=== PATIENT | female | born 1945 | race Caucasian/White ===

== ENCOUNTER 2020-04-01 10:08 | Outpatient (CLI) | payer MEDICARE, SELFPAY ==
[2020-04-01 10:20] LABS: Basophils Absolute Auto 0.11 K/mm3 (0.00-0.10); Basophils Percent Auto 1.9 % (0.0-1.0); Eosinophils Absolute Auto 0.28 K/mm3 (0.02-0.50); Eosinophils Percent Auto 4.7 % (1.0-6.0); Hematocrit 39.7 % (35.0-42.0); Hemoglobin 13.3 g/dL (11.7-13.8); Immature Granulocyte Absolute 0.01 K/mm3 (0.00-0.00); Immature Granulocyte Percent A 0.2 % (0.0-0.0); Lymphocytes Absolute Auto 2.69 K/mm3 (1.10-4.50); Lymphocytes Percent Auto 45.3 % (18.0-42.0); Mean Corpuscular HGB Conc 33.5 g/dL (32.0-36.0); Mean Corpuscular Hemoglobin 29.8 pg (27.0-31.0); Mean Corpuscular Volume 88.8 fL (78.0-102.0); Mean Platelet Volume 10.3 fl (9.2-11.8); Monocytes Absolute Auto 0.53 K/mm3 (0.10-0.90); Monocytes Percent Auto 8.9 % (2.0-11.0); Neutrophils Absolute Auto 2.3 K/mm3 (1.7-7.2); Platelet Count Result 278 K/mm3 (150-420); Red Blood Count 4.47 M/mm3 (4.20-5.40); Red Cell Distribution Width 11.9 % (11.6-14.4); White Blood Count 5.9 K/mm3 (4.8-10.8)
[2020-04-01 10:33] LABS: Creatinine Urine 120.54 mg/dL (40-278); MALB Creatinine Ratio 10.4 mg/g (0-30); Microalbumin Urine Random 12.6 mg/L
[2020-04-01 10:35] LABS: Hemoglobin A1C 10.3 % (<5.7)
[2020-04-01 11:12] LABS: Alanine Aminotransferase 23 U/L (14-59); Albumin Level 4.2 g/dL (3.4-5.0); Alkaline Phosphatase 68 U/L (46-116); Anion Gap 13 mmol/L (8-16); Aspartate Amino Transferase 20 U/L (15-37); Bilirubin,Total 0.5 mg/dL (0.00-1.00); Blood Urea Nitrogen 19 mg/dL (7-18); Calcium 9.5 mg/dL (8.5-10.1); Carbon Dioxide 24 mmol/L (21-32); Chloride 100 mmol/L (98-108); Cholesterol 184 mg/dL (0-200); Estimated Glomerular Filt Rate 50; Glucose 210 mg/dL (70-99); HDL Direct 46 mg/dL (40-60); LDL Cholesterol Calculated 105 mg/dL (<130); Osmolality Calculated 292 mOsm/kg (285-295); Potassium 4.5 mmol/L (3.5-5.1); Sodium 137 mmol/L (136-145); Total Protein 7.6 g/dL (6.4-8.2); Triglycerides 164 mg/dL (0-150)
[2020-04-01 12:03] LABS: Thyroid Stimulating Hormone Reflex 2.78 u/IU/mL (0.36-3.74)
== END 2020-04-01 10:09 | disposition home or self-care (01) ==
PROVIDERS: PCP Family Medicine; Visit Provider Family Medicine
DX: E03.9 Hypothyroidism, unspecified (principal); E11.9 Type 2 diabetes mellitus without complications; I10 Essential (primary) hypertension
CPT/HCPCS: 36415; 80053; 80061; 82043; 83036; 84443; 85025

== ENCOUNTER 2021-03-15 09:23 | Outpatient (CLI) | payer MEDICARE, SELFPAY ==
[2021-03-15 10:45] LABS: Basophils Absolute Auto 0.13 K/mm3 (0.00-0.10); Basophils Percent Auto 2.2 % (0.0-1.0); Eosinophils Absolute Auto 0.35 K/mm3 (0.02-0.50); Eosinophils Percent Auto 5.8 % (1.0-6.0); Hematocrit 37.7 % (35.0-42.0); Hemoglobin 12.5 g/dL (11.7-13.8); Immature Granulocyte Absolute 0.01 K/mm3 (0.00-0.00); Immature Granulocyte Percent A 0.2 % (0.0-0.0); Lymphocytes Absolute Auto 2.32 K/mm3 (1.10-4.50); Lymphocytes Percent Auto 38.7 % (18.0-42.0); Mean Corpuscular HGB Conc 33.2 g/dL (32.0-36.0); Mean Corpuscular Hemoglobin 29.5 pg (27.0-31.0); Mean Corpuscular Volume 88.9 fL (78.0-102.0); Mean Platelet Volume 10.4 fl (9.2-11.8); Monocytes Absolute Auto 0.57 K/mm3 (0.10-0.90); Monocytes Percent Auto 9.5 % (2.0-11.0); Neutrophils Absolute Auto 2.6 K/mm3 (1.7-7.2); Neutrophils Percent Auto 43.6 % (50.0-70.0); Platelet Count Result 273 K/mm3 (150-420); Red Blood Count 4.24 M/mm3 (4.20-5.40); Red Cell Distribution Width 12.3 % (11.6-14.4)
[2021-03-15 11:08] LABS: Hemoglobin A1C 7.9 % (<5.7)
[2021-03-15 11:28] LABS: Alanine Aminotransferase 17 U/L (14-59); Alkaline Phosphatase 60 U/L (46-116); Anion Gap 11 mmol/L (8-16); Aspartate Amino Transferase 18 U/L (15-37); Bilirubin,Total 0.6 mg/dL (0.00-1.00); Blood Urea Nitrogen 20 mg/dL (7-18); Carbon Dioxide 26 mmol/L (21-32); Chloride 104 mmol/L (98-108); Cholesterol 160 mg/dL (0-200); Estimated Glomerular Filt Rate > 60; Glucose 139 mg/dL (70-99); HDL Direct 53 mg/dL (40-60); LDL Cholesterol Calculated 80 mg/dL (<130); Osmolality Calculated 296 mOsm/kg (285-295); Potassium 4.6 mmol/L (3.5-5.1); Sodium 141 mmol/L (136-145); Total Protein 6.9 g/dL (6.4-8.2); Triglycerides 137 mg/dL (0-150)
[2021-03-15 11:34] LABS: Thyroid Stimulating Hormone Reflex 2.43 u/IU/mL (0.36-3.74)
== END 2021-03-15 09:24 | disposition home or self-care (01) ==
LOC: CHSLAB 09:24
PROVIDERS: PCP Family Medicine; Visit Provider Family Medicine
DX: E03.9 Hypothyroidism, unspecified (principal); E11.9 Type 2 diabetes mellitus without complications
CPT/HCPCS: 36415; 80053; 80061; 83036; 84443; 85025

== ENCOUNTER 2025-03-17 15:02 | Outpatient (CLI) | payer MEDICARE, SELFPAY ==
--- NOTE | ~2025-03-17 | XR_ITS ---
EXAM: XR wrist RT w scaphoid, XR wrist LT w scaphoid DATE: 03/17/2025 15:23 HISTORY: M25.531 - Pain in right wrist . COMPARISON: None available. FINDINGS: Decreased mineralization. No fracture or dislocation. No lytic or blastic lesion. Scattere d degenerative changes typical of osteoarthritis, most pronounced at the first CMC joints and worse o n the left. Chondrocalcinosis. No erosion or periosteal change. Soft tissue swelling about the wrist joints and likely wrist joint effusions. IMPRESSION: Osteopenia. Polyarticular arthritis of the wrists, with chondrocalcinosis. Bilateral wris t joint effusions and soft tissue swelling Reviewed, dictated and finalized at location K. IMPRESSION: Osteopenia. Polyarticular arthritis of the wrists, with chondrocalc inosis. Bilateral wrist joint effusions and soft tissue swelling
== END 2025-03-17 15:03 | disposition home or self-care (01) ==
LOC: CHSIMG 15:05
PROVIDERS: PCP Family Medicine; Visit Provider Nurse Practitioner Family
DX: R29.898 Other symptoms and signs involving the musculoskeletal system (principal); M25.531 Pain in right wrist; M25.532 Pain in left wrist; M85.88 Other specified disorders of bone density and structure, other site; M19.032 Primary osteoarthritis, left wrist; M19.031 Primary osteoarthritis, right wrist; M11.232 Other chondrocalcinosis, left wrist; M11.231 Other chondrocalcinosis, right wrist; M25.432 Effusion, left wrist; M25.431 Effusion, right wrist; M79.89 Other specified soft tissue disorders
CPT/HCPCS: 73110

== ENCOUNTER 2025-08-10 11:47 | Outpatient (CLI) | payer MEDICARE, SELFPAY ==
--- OUTSIDE RECORDS SUMMARY | 2025-08-10 12:03 | XMS_ITS | Clinical Summary ---
Author Organization [facility] Address [address] [place] [address] Care Team Providers Care Human Resources Project Manager Name Role Phone JuanThomas phillips Primary Care Provider [phone] Allergies Active Allergy Reactions Criticality Noted Date Comments Penicillins Swelling 04/18/2025 Medications metFORMIN (GLUCOPHAGE) 1000 MG tablet Take 1 tablet (1,000 mg total) by mouth 2 (two) times daily with meals. Active glipiZIDE (GLUCOTROL) 10 MG tablet Take 1 tablet (10 mg total) by mouth 2 (two) times daily before meals. Active SITagliptin (JANUVIA) 100 MG tablet Take 1 tablet (100 mg total) by mouth daily. Active levothyroxine (SYNTHROID) 100 MCG tablet Take 1 tablet (100 mcg total) by mouth every morning. Active amLODIPine (NORVASC) 10 MG tablet Take 1 tablet (10 mg total) by mouth daily. Active losartan (COZAAR) 100 MG tablet Take 1 tablet (100 mg total) by mouth daily. Active Active Problems Problem Noted Date Diagnosed Date Femur fracture 04/18/2025 Social History Tobacco Use Types Packs/Day Years Used Date Smoking Tobacco: Never Smokeless Tobacco: Never Tobacco Cessation:Counseling Given: Not Answered [facility] Utilities Answer Date Recorded In the past 12 months has e [employer]Pack, [email or web address], oil, or water [employer] threatened to shut off services in your home? No 04/21/2025 Humiliation, Afraid, Rape, and Kick questionnair e Answer Date Recorded Within the last year, have y ou been afraid of your partner or ex-partner? No 04/21/2025 Within the last year, have y ou been humiliated or emotionally abused in other ways by your partner or ex-partner? No Within the last year, have y ou been kicked, hit, slapped, or otherwise physically hurt by your partner or ex-partner? No 04/21/2025 Within the last year, have y ou been raped or forced to have any kind of sexual activity by your partner or ex-partner? No 04/21/2025 Overall Financial Resource Strain (CARDIA) Answe r Date Recorded How hard is it for you to pa y for the very basics like food, housing, medical care, and heating? Not very hard 04/21/2025 Hunger Vital Sign Answer Date Recorded Within the past 12 months, y ou worried that your food would run out before you got the money to buy more. Never true 04/21/20 25 Within the past 12 months, t he food you bought just didn't last and you didn't have money to get more. Never true 04/21/2025 PRAPARE - Transportation Answer Date Re corded In the past 12 months, has l ack of transportation kept you from medical appointments or from getting medications? No 10/2024 In the past 12 months, has l ack of transportation kept you from meetings, work, or from getting things needed for daily living? No 04/21/2025 Housing Stability Vital Sign Answer Jasper e Recorded In the last 12 months, was t here a time when you were not able to pay the mortgage or rent on time? No 04/21/2025 In the past 12 months, how m any times have you moved where you were living? 0 04/21/2025 At any time in the past 12 m [facility], were you homeless or living in a jail (including now)? No 04/21/2025 Comments Unknown Sex and Gender Information Value Date Recorded Sex Assigned at Female 04/18/2025 8:49 PM CDT Legal Sex Female 1:40 PM CDT Gender Identity Female 04/18/2025 8:49 PM CDT Sexual Orientation Straight 04/18/2025 8: 49 PM CDT Last Filed Vital Signs Vital Sign Reading Time Taken Comments Blood Pressure 128/50 04/28/2025 7:31 AM CDT Pulse 88 04/28/2025 7:31 AM CDT Temperature 36.9 C (98.4 F) 04/28/2025 7:31 AM CDT Respiratory Rate 16 04/27/2025 9:02 PM CDT Oxygen Saturation 98% 04/28/2025 7:31 AM CDT Inhaled Oxygen Concentration - - Weight 83.9 kg (185 lb) 04/18/2025 1:59 PM CDT Height 170.7 cm (5' 7.2) 04/18/2025 1:59 PM CDT Body Mass Index 28.8 04/18/2025 1:59 PM CDT Plan of Treatment Health Maintenance Due Date Last Done Comments Kidney Health Evaluation 1946 Lipid Panel 1946 Diabetes: Retinopathy Eye Exam 1964 Hepatitis C 1963 Annual Medicare Wellness Visit 2011 Dexa Scan (General) 2011 Zoster Vaccines (2 of 3) 05/31/2015 04/05/2015 RSV Immunization or 60+ Years (1 - 1-dose 75+ series) 2021 COVID-19 Vaccine ( season) 2025 09/13/2022, 01/19/2022, 06/28/2021, Additional history exists Influenza Adult (#1) 2025 Hemoglobin A1C 07/18/2025 04/18/2025 DTaP, Tdap and Td Vaccines (2 - Td or Tdap) 02/18/2028 02/17/2018 Pneumococcal Vaccine: 50+ Years Completed 11/19/2024, 01/09/2019 Hepatitis A Vaccines Aged Out No long er eligible based on patient's age to complete this topic Meningococcal B Vaccine Aged Out No l onger eligible based on patient's age to complete this topic Meningococcal Vaccine Aged Out No martin osman eligible based on patient's age to complete this topic RSV Immunizations Under 20 Months Aged Out No longer eligible based on patient's age to complete this topic Medical Devices Implanted Type Area Evaporator Operator Device Identifier Shelf Expiration Date Model / Serial / Lot Hip Nail Implanted:Qty: 1 on 04/20/2025 by Tayo Gallegos Jr., DO at [facility] Left: [employer] [id number] 09/30/2034 [id number] / / [id number] Lag Screw Implanted:Qty: 1 on 04/20/2025 by Tayo Gallegos Jr., DO at [facility] Left: [employer] [id number] 04/22/2034 [id number] / / [id number] 5 X 44mm Bone Screw Implanted:Qty: 1 on 04/20/2025 by Tayo Gallegos Jr., DO at [facility] Left: [employer] [id number] 09/18/2032 [id number] / / [id number] 5 X 44mm Bone Screw Implanted:Qty: 1 on 04/20/2025 by Tayo Gallegos Jr., DO at [facility] Left: [employer] [id number] 05/08/2033 [id number] / / [id number] Explanted Type Area Evaporator Operator Device Identifier Shelf Expiration Date Model / Serial / Lot Guide Wire Explanted:Qty: 1 on 04/20/2025 by Tayo Gallegos Jr., DO at [facility] Left: [employer] [id number] 06/17/2034 [id number] / / [id number] Threaded Guide Pin Explanted:Qty: 2 on 04/20/2025 at [facility] Left: [employer] [id number] 07/08/2034 [id number] / / [id number] 4.3mm Drill Explanted:Qty: 2 on 04/20/2025 by Tayo Gallegos Jr., DO at [facility] Left: [employer] [id number] 11/21/2034 [id number] / / [id number] Procedures Procedure Name Priority Date/Time Associated Diagnosis Comments HC GLYCOSYLATED HGB STAT 04/18/2025 1 :56 PM CDT from Last 3 Months or Most Recently Relevant to Health Maintenance Results * (ABNORMAL) HEMOGLOBIN, GLYCOSYLATED (04/18/2025 1:56 PM CDT) HGB A1C 9.4(H) <5.7 % 04/18/2025 7:07 PM CDT [facility] ESTIMATED AVG GLUCOSE 223(H) 74 - 114 MG/DL 04/18/2025 7:07 PM CDT [facility] 04/18/2025 1:56 PM CDT us Jony Rae MD LABORATORY Final Result [facility] [address] [place] [address], [id number] from Last 3 Months or Most Recently Relevant to Health Maintenance Insurance [facility] MEDIC[facility] Advance Directives Documents on File Type Date Recorded Patient Bit Tapper Expl anation Advance Directives and Livin g Will 05/17/2025 8:20 AM * Full Code (Latest Code Status on File) Date Activated Date Inactivated Comments 04/18/2025 3:38 PM 04/28/2025 1:16 PM Healthcare Agents on File Name Relationship Healthcare Agent Relationship Communication RASHIDA MILLER (son) Power of Paper Machine Back Tender Health Care Agen t Care Teams Human Resources Project Manager Relationship Specialty Start Date End Date Thomas Nino DO [address] [place] [address] PCP - General FAMILY PRACTICE 04/20/25
--- OUTSIDE RECORDS SUMMARY | 2025-09-24 18:00 | XMS_ITS | Clinical Summary ---
Author Organization Unknown Care Team Providers Care Environmental Services Coordinator Name Role Phone RONNYSID MERARY TERRAZAS Unavailable Unavailable DARRYL RN, PAMELA Unavailable Unavailable BRUCE PT, AIDAN Unavailable Unavailabl e Payers Payer Name Policy Type Policy Number Effective Date Expira tion Date [employer] MEDICARE ADVANTAGE FFS - ORDER DRIVEN [id number] MEDICARE - [place] - PDGM [id number] Problems Condition Name Condition Details Condition Category Status Onset Date Resolution Date Last Treatment Date Treating Clinician Comments PRESSURE ULCER OF LEFT HEEL, STAGE 2 Active 08-19 00:00: 00 DISPL COMMNT FX SHAFT OF L FEMR, 7THD Active 08-19 00:00: 00 TYPE 2 DIABETES MELLITUS WITHOUT COMPLICATION S Active 08-19 00:00: 00 HYPOTHYROIDI SM, UNSPECIFIED Active 08-19 00:00: 00 ESSENTIAL (PRIMARY) HYPERTENSION Active 08-19 00:00: 00 ALF (CURRENT) USE OF ORAL HYPOGLYCEMIC DRUGS Active 08-19 00:00: 00 TILTING HEAD BAND SAWYER (CURRENT) USE OF NON-STEROIDA L NON-INFLAM (NSAID) Active 08-19 00:00: 00 HISTORY OF FALLING Active 08-19 00:00: 00 Allergies, Adverse Reactions, Alerts Allergy Name Allergy Type Status Severity Reaction(s) Onset Date Inactive Date Treating Clinician Comments PENICILLIN Propensity to adverse reactions Active 2024-08 14:33: 19 Medications Ordered Medication Name Filled Medication Name Start Date Stop Date Current Medication? Ordering Clinician Indication Dosage Frequency Signature (SIG) Comments Components acetaminoph en 325 mg capsule 2024-08 00:00: 00 Yes [id number] 2 capsule 2 TIMES DAILY 2 capsule 2 TIMES DAILY (route: oral) Med Classific ation: Analgesic , Anti-infl ammatory or Antipyret ic amlodipine 10 mg tablet 2024-08 00:00: 00 Yes [id number] 1 tablet DAILY 1 tablet DAILY (route: oral) Med Classific ation: Cardiovas cular Therapy Agents cyclobenzap rine 5 mg tablet 2024-08 00:00: 00 Yes [id number] 1 tablet NEEDED 1 tablet NEEDED (route: oral) Med Classific ation: Locomotor System glipizide 10 mg tablet 2024-08 00:00: 00 Yes [id number] 1 tablet 2 TIMES DAILY 1 tablet 2 TIMES DAILY (route: oral) Med Classific ation: Endocrine Imodium A-D 2 mg capsule 2024-08 00:00: 00 Yes [id number] 1 capsule NEEDED 1 capsule NEEDED (route: oral) Med Classific ation: Gastroint estinal Therapy Agents levothyroxi ne 100 mcg capsule 2024-08 00:00: 00 Yes [id number] 1 capsule DAILY 1 capsule DAILY (route: oral) Med Classific ation: Endocrine losartan 100 mg tablet 2024-08 00:00: 00 Yes [id number] 1 tablet DAILY 1 tablet DAILY (route: oral) Med Classific ation: Cardiovas cular Therapy Agents meloxicam 7.5 mg tablet 2024-08 00:00: 00 Yes [id number] 1 tablet DAILY 1 tablet DAILY (route: oral) Med Classific ation: Analgesic , Anti-infl ammatory or Antipyret ic metformin 1,000 mg tablet 2024-08 00:00: 00 Yes [id number] 1 tablet 2 TIMES DAILY 1 tablet 2 TIMES DAILY (route: oral) Med Classific ation: Endocrine sitagliptin 100 mg tablet 2024-08 00:00: 00 Yes [id number] 1 tablet DAILY 1 tablet DAILY (route: oral) Med Classific ation: Endocrine tramadol 50 mg tablet 2024-08 00:00: 00 Yes [id number] .5 tablet NEEDED .5 tablet NEEDED (route: oral) Med Classific ation: Analgesic , Anti-infl ammatory or Antipyret ic Wound Cleanser irrigation spray 2024-08 00:00: 00 Yes [id number] Per instruc tions DIRECTED Per instructio ns DIRECTED (route: irrigation ) Med Classific ation: Dermatolo gical MediHoney (honey) 80 % topical gel 2024-08 00:00: 00 Yes [id number] Per instruc tions DIRECTED Per instructio ns DIRECTED (route: topical) Med Classific ation: Dermatolo gical Immunizations Ordered Immunization Name Filled Immunization Name Date Status Comments Refusal Reason COVID-19, COVID-19 2025-07-27 00:00:00 INFLUENZA, TIV (INACTIVATED) 2025-07-27 00:00:00 COVID-19, COVID-19 2025-05-29 00:00:00 INFLUENZA, LAIV (LIVE VIRUS) 2025-05-28 00:00:00 PNEUMOCOCCAL (PPV), PPV 2023-05-22 00:00:00 Vital Signs Vital Name Observation Time Observation Value Commen ts Temperature 2025-08-02 10:40:00.000 97.9 [degF] Pulse 2025-08-02 10:40:00.000 78 /min O2 Saturation (%) 2025-08-02 10:40:00.000 97 % Respirations 2025-08-02 10:40:00.000 18 /min Systolic Blood Pressure 2025-08-02 10:40:00.000 128 mm [Hg] Diastolic Blood Pressure 2025-08-02 10:40:00.000 62 mm [Hg] Plan of Treatment Planned Activity Planned Date Details Comments Future Scheduled Test SKILLED NU RSE TO EVALUATE PATIENT, IDENTIFY PRIMARY AND CO-MORBID CONDITIONS CODED PER CODING GUIDELINES, AND DEVELOP PATIENT SPECIFIC PLAN OF CARE THAT INCLUDES PATIENT GOAL FOR HOME HEALTH. PLAN OF CARE TO INCLUDE 3 PRN VISIT(S) FOR OASIS DATA COLLECTION/COMPREHENSIVE ASSESSMENT AT TIMEPOINTS PER FEDERAL REGULATIONS. THIS INCLUDES VISITS FOR LISBETH, RECERT, SCIC, AND/OR DC. [code = SKILLED NURSE TO EVALUATE PATIENT, IDENTIFY PRIMARY AND CO-MORBID CONDITIONS CODED PER CODING GUIDELINES, AND DEVELOP PATIENT SPECIFIC PLAN OF CARE THAT INCLUDES PATIENT GOAL FOR HOME HEALTH. PLAN OF CARE TO INCLUDE 3 PRN VISIT(S) FOR OASIS DATA COLLECTION/COMPREHENSIVE ASSESSMENT AT TIMEPOINTS PER FEDERAL REGULATIONS. THIS INCLUDES VISITS FOR LISBETH, RECERT, SCIC, AND/OR DC.] Future Scheduled Test [facility] MAY ACCEPT ORDERS FROM THE FOLLOWING PHYSICIANS: ONCOLOGY PHARMACIST/TREATING PROVIDERS [code = HOME HEALTH AGENCY MAY ACCEPT ORDERS FROM THE FOLLOWING PHYSICIANS: ONCOLOGY PHARMACIST/TREATING PROVIDERS] Future Scheduled Test SKILLED NU RSE FOR INSTRUCTION/ REINFORCEMENT OF NEEDS RELATED TO NUTRITION/HYDRATION. [code = SKILLED NURSE FOR INSTRUCTION/ REINFORCEMENT OF NEEDS RELATED TO NUTRITION/HYDRATION.] Future Scheduled Test NEED FOR S KILLED TEACHING AND INTERVENTION RELATED TO STAGE II PRESSURE TO LEFT HEEL SKILLED NURSE OR TRAINED PATIENT/CAREGIVER TO PERFORM WOUND CARE USING ASEPTIC TECHNIQUE, CLEANSE WITH WOUND CLEANSER, PAT DRY WITH GAUZE, APPLIED MEDIHONEY TO WOUND BED, COVER WITH FOAM, SECURE WITH TAPE, WOUND CARE TO BE PERFORMED EVERY 3 DAYS AND PRN IF SOILED OR DISLODGED. 1-2 PRN SKILLED NURSE VISITS FOR WOUND CARE DUE TO COMPLICATIONS. SKILLED NURSE TO OBTAIN WOUND CULTURE PRN S/S OF INFECTION. WOUND CARE WILL BE PERFORMED BY TRAINED CAREGIVER ON DAYS WHEN SKILLED NURSE IS NOT SCHEDULED FOR A VISIT. DISCONTINUE WOUND CARE/SUPPLIES ONCE WOUND IS HEALED. [code = NEED FOR SKILLED TEACHING AND INTERVENTION RELATED TO STAGE II PRESSURE TO LEFT HEEL SKILLED NURSE OR TRAINED PATIENT/CAREGIVER TO PERFORM WOUND CARE USING ASEPTIC TECHNIQUE, CLEANSE WITH WOUND CLEANSER, PAT DRY WITH GAUZE, APPLIED MEDIHONEY TO WOUND BED, COVER WITH FOAM, SECURE WITH TAPE, WOUND CARE TO BE PERFORMED EVERY 3 DAYS AND PRN IF SOILED OR DISLODGED. 1-2 PRN SKILLED NURSE VISITS FOR WOUND CARE DUE TO COMPLICATIONS. SKILLED NURSE TO OBTAIN WOUND CULTURE PRN S/S OF INFECTION. WOUND CARE WILL BE PERFORMED BY TRAINED CAREGIVER ON DAYS WHEN SKILLED NURSE IS NOT SCHEDULED FOR A VISIT. DISCONTINUE WOUND CARE/SUPPLIES ONCE WOUND IS HEALED.] Future Scheduled Test SKILLED NU RSE TO OBTAIN BLOOD SUGAR PRN FOR SIGNS AND SYMPTOMS OF HYPO/HYPERGLYCEMIA. IF OBTAINED BY PATIENT/CAREGIVER PRIOR TO VISIT AND PATIENT IS NOT SYMPTOMATIC, SKILLED NURSE TO RECORD READING FROM PATIENT LOG. [code = SKILLED NURSE TO OBTAIN BLOOD SUGAR PRN FOR SIGNS AND SYMPTOMS OF HYPO/HYPERGLYCEMIA. IF OBTAINED BY PATIENT/CAREGIVER PRIOR TO VISIT AND PATIENT IS NOT SYMPTOMATIC, SKILLED NURSE TO RECORD READING FROM PATIENT LOG.] Future Scheduled Test SKILLED NU RSE TO PROVIDE TEACHING ON SIGNS AND SYMPTOMS AND MANAGEMENT OF HYPERTENSION. [code = SKILLED NURSE TO PROVIDE TEACHING ON SIGNS AND SYMPTOMS AND MANAGEMENT OF HYPERTENSION.] Future Scheduled Test SKILLED NU RSE FOR O/A AND TEACHING OF DIABETIC MANAGEMENT INCLUDING BLOOD SUGAR MONITORING/USE OF GLUCOMETER, DIABETIC DIET, LOWER EXTREMITY SKIN INSPECTION, PROPER SKIN/FOOT CARE, AND SIGNS AND SYMPTOMS HYPO/HYPERGLYCEMIA TO REPORT. [code = SKILLED NURSE FOR O/A AND TEACHING OF DIABETIC MANAGEMENT INCLUDING BLOOD SUGAR MONITORING/USE OF GLUCOMETER, DIABETIC DIET, LOWER EXTREMITY SKIN INSPECTION, PROPER SKIN/FOOT CARE, AND SIGNS AND SYMPTOMS HYPO/HYPERGLYCEMIA TO REPORT.] Future Scheduled Test PATIENT KAUFMAN S A RISK OF HOSPITALIZATION AND ED USE. SKILLED NURSE TO ESTABLISH SUPPORT MEASURES TO MINIMIZE RISK OF HOSPITALIZATION AND ED USE, AND INSTRUCT PATIENT/CAREGIVER ON METHODS TO REDUCE AVOIDABLE HOSPITALIZATION AND ED USE. [code = PATIENT HAS A RISK OF HOSPITALIZATION AND ED USE. SKILLED NURSE TO ESTABLISH SUPPORT MEASURES TO MINIMIZE RISK OF HOSPITALIZATION AND ED USE, AND INSTRUCT PATIENT/CAREGIVER ON METHODS TO REDUCE AVOIDABLE HOSPITALIZATION AND ED USE.] Future Scheduled Test SKILLED NU RSE TO PROVIDE INSTRUCTION TO PATIENT/CAREGIVER RELATED TO DISCHARGE PLANNING. [code = SKILLED NURSE TO PROVIDE INSTRUCTION TO PATIENT/CAREGIVER RELATED TO DISCHARGE PLANNING.] Future Scheduled Test SKILLED NU RSE TO PERFORM ENVIRONMENTAL SAFETY RISK ASSESSMENT AND FALL RISK ASSESSMENT AND PROVIDE INSTRUCTION TO IMPLEMENT ENVIRONMENTAL SAFETY AND FALL PREVENTION STRATEGIES THROUGHOUT THE CERTIFICATION PERIOD. SKILLED NURSE WILL MAINTAIN SITUATIONAL AWARENESS AND WILL NOTIFY CLINICAL INSURANCE WRITER AND PHYSICIAN/PROVIDER WITH ANY CHANGE IN CONDITION. [code = SKILLED NURSE TO PERFORM ENVIRONMENTAL SAFETY RISK ASSESSMENT AND FALL RISK ASSESSMENT AND PROVIDE INSTRUCTION TO IMPLEMENT ENVIRONMENTAL SAFETY AND FALL PREVENTION STRATEGIES THROUGHOUT THE CERTIFICATION PERIOD. SKILLED NURSE WILL MAINTAIN SITUATIONAL AWARENESS AND WILL NOTIFY CLINICAL INSURANCE WRITER AND PHYSICIAN/PROVIDER WITH ANY CHANGE IN CONDITION.] Future Scheduled Test SKILLED NU RSE FOR OBSERVATION AND ASSESSMENT OF PATIENT S PAIN LEVEL AND EFFECTIVENESS OF PAIN MANAGEMENT REGIMEN. SKILLED NURSE TO INSTRUCT PATIENT/CAREGIVER REGARDING PHARMACOLOGIC AND NON-PHARMACOLOGIC PAIN CONTROL MEASURES. SKILLED NURSE TO REPORT TO PHYSICIAN IF PAIN LEVEL IS OUTSIDE OF ESTABLISHED PARAMETERS. [code = SKILLED NURSE FOR OBSERVATION AND ASSESSMENT OF PATIENT S PAIN LEVEL AND EFFECTIVENESS OF PAIN MANAGEMENT REGIMEN. SKILLED NURSE TO INSTRUCT PATIENT/CAREGIVER REGARDING PHARMACOLOGIC AND NON-PHARMACOLOGIC PAIN CONTROL MEASURES. SKILLED NURSE TO REPORT TO PHYSICIAN IF PAIN LEVEL IS OUTSIDE OF ESTABLISHED PARAMETERS.] Future Scheduled Test SKILLED NU RSE TO ASSESS PATIENT'S SKIN INTEGRITY AND INSTRUCT PATIENT/CAREGIVER ON MEASURES TO PREVENT PRESSURE ULCERS. [code = SKILLED NURSE TO ASSESS PATIENT'S SKIN INTEGRITY AND INSTRUCT PATIENT/CAREGIVER ON MEASURES TO PREVENT PRESSURE ULCERS.] Future Scheduled Test SKILLED NU RSE TO REVIEW PATIENT MEDICATIONS (PRESCRIPTION/OTC). INSTRUCT PATIENT/CAREGIVER ON ALL MEDICATIONS INCLUDING PURPOSE, WHEN TO TAKE, IMPORTANCE OF MEDICATION ADHERENCE, MONITORING OF EFFECTIVENESS, ADVERSE DRUG REACTIONS, POSSIBLE SIDE EFFECTS, AND WHEN TO NOTIFY AGENCY OR PHYSICIAN/PROVIDER OF ANY CONCERNS. [code = SKILLED NURSE TO REVIEW PATIENT MEDICATIONS (PRESCRIPTION/OTC). INSTRUCT PATIENT/CAREGIVER ON ALL MEDICATIONS INCLUDING PURPOSE, WHEN TO TAKE, IMPORTANCE OF MEDICATION ADHERENCE, MONITORING OF EFFECTIVENESS, ADVERSE DRUG REACTIONS, POSSIBLE SIDE EFFECTS, AND WHEN TO NOTIFY AGENCY OR PHYSICIAN/PROVIDER OF ANY CONCERNS.] Goal 2025-07-27 Patient Goal - TO WALK JUNE R Goal Patient Goal - TO WALK JUNE R Goal Provider Goal - A PLAN OF CARE WILL BE ESTABLISHED THAT MEETS PATIENT'S [facility] NEEDS AND INCLUDES PATIENT GOAL FOR HOME HEALTH. Goal Provider Goal - ADDITIONAL ORDERS WILL BE RECEIVED FROM ALTERNATE PHYSICIAN IN A TIMELY MANNER THROUGHOUT THE CERTIFICATION PERIOD. Goal Provider Goal - PATIENT/CAREGIVER WILL DEMONSTRATE ABILITY TO SELF MANAGE NEEDS RELATED TO NUTRITION/HYDRATION THROUGHOUT THE EPISODE. Goal Provider Goal - WOUND CARE WILL BE COMPLETED AND PATIENT WILL HAVE IMPROVED WOUND STATUS EVIDENCED BY NO SIGNS AND SYMPTOMS OF INFECTION, DECREASED WOUND SIZE, AND/OR NO COMPLICATIONS BY THE END OF THE CERTIFICATION PERIOD. Goal Provider Goal - BLOOD SUGAR READING WILL BE OBTAINED ORDERED THROUGHOUT CERTIFICATION PERIOD. Goal Provider Goal - PATIENT/CAREGIVER WILL VERBALIZE SIGNS AND SYMPTOMS OF HYPERTENSION AND WILL BE ABLE TO DEMONSTRATE ABILITY TO MANAGE EXACERBATION BY END OF THE EPISODE. Goal Provider Goal - PATIENT/CAREGIVER WILL VERBALIZE/DEMONSTRATE KNOWLEDGE OF DIABETIC MANAGEMENT. CHANGES IN DIABETIC STATUS WILL BE IDENTIFIED AND REPORTED TO PHYSICIAN FOR PROMPT INTERVENTION THROUGHOUT THE CERTIFICATION PERIOD. Goal Provider Goal - PATIENT WILL HAVE SUPPORT MEASURES ESTABLISHED TO PREVENT HOSPITALIZATION AND ED USE AND PATIENT/CAREGIVER WILL VERBALIZE/DEMONSTRATE METHODS TO REDUCE AVOIDABLE HOSPITALIZATION AND ED USE BY END OF EPISODE. Goal Provider Goal - PATIENT/CAREGIVER WILL VERBALIZE UNDERSTANDING OF DISCHARGE PLANNING INSTRUCTIONS BY DATE OF DISCHARGE. Goal Provider Goal - PATIENT/CAREGIVER WILL VERBALIZE/DEMONSTRATE EFFECTIVE ENVIRONMENTAL SAFETY AND FALL PREVENTION STRATEGIES, WILL REMAIN SAFE IN THE COMMUNITY, AND WILL BE FREE OF DANGER TO SELF AND OTHERS THROUGHOUT THE CERTIFICATION PERIOD. Goal Provider Goal - PATIENT/CAREGIVER WILL DEMONSTRATE UNDERSTANDING OF PHARMACOLOGIC AND NONPHARMACOLOGIC PAIN CONTROL MEASURES AND PATIENT WILL HAVE IMPROVEMENT IN PAIN INTERFERING WITH ACTIVITY EVIDENCED BY PAIN AT A LEVEL THAT IS ACCEPTABLE TO THE PATIENT AND PAIN LEVEL WITHIN ESTABLISHED PARAMETERS BY END OF CERTIFICATION PERIOD. Goal Provider Goal - PATIENT/CAREGIVER WILL VERBALIZE UNDERSTANDING OF PRESSURE ULCER PREVENTION BY END OF THE EPISODE. Goal Provider Goal - PATIENT/CAREGIVER WILL VERBALIZE UNDERSTANDING OF EDUCATION PROVIDED ON MEDICATIONS BY THE END OF THE CERTIFICATION PERIOD. Encounters Start Date/Time End Date/Time Encounter Type Admission Type Attending [facility] Care Facility Care Department Encounter ID Discharge Date Discharge Status Discharge Condition Discharge Reason Percent Goals Met 2025-07-28 00:00:00 2025-09-25 00:00:00 Outpatient RECERTIFIC AIDAN NAVARRETE [facility] [id number]
== END 2025-08-10 11:48 | disposition home or self-care (01) ==
LOC: CHSLAB 11:48
PROVIDERS: PCP Family Medicine; Visit Provider Family Medicine
DX: R19.7 Diarrhea, unspecified (principal)
CPT/HCPCS: 82272